=== PATIENT | female | born 1930 | race Caucasian/White ===

== ENCOUNTER 2016-04-16 15:40 | Emergency (ER) | payer MEDICARE, BC ==
--- NOTE | 2016-04-16 16:55 | RAD ---
INDICATION: Chest pain COMPARISON: Chest x-ray May 31, 2014 TECHNIQUE: PA and lateral views were obtained. FINDINGS: Bones/Soft Tissues: There are no acute bony findings. There is sternotomy Cardiomediastinal: The cardiomediastinal silhouette is mildly enlarged, unchanged. Lungs: There are no infiltrates. Pleura: There are no pleural effusions. Other: None IMPRESSION: POSTSURGICAL CARDIOMEGALY. NO ACTIVE DISEASE.
[2016-04-16 16:59] LABS: Hematocrit 42 % (35-47); Hemoglobin 13.7 g/dl (12.0-16.0); Mean Corpuscular HGB Conc 33 g/dl (31-36); Mean Corpuscular Hemoglobin 30 pg (27-31); Mean Corpuscular Volume 89 fL (80-97); Mean Platelet Volume 7 um3 (7.4-10.4); Red Blood Count 4.65 10^6/ul (4.0-5.4); Red Cell Distribution Width 16 % (10.5-15); White Blood Count 8.1 10^3/ul (3.5-10.8)
[2016-04-16 17:11] LABS: Calcium 9.6 mg/dL (8.6-10.3); EGFR Non-African American 55.2 (>60); Globulin 3.2 g/dL (2-4); Potassium 3.8 mmol/L (3.5-5.0); Total Bilirubin 0.5 mg/dL (0.2-1.0); Total Protein 7.2 g/dL (6.4-8.9)
[2016-04-16 17:12] LABS: Troponin I 0.01 ng/mL (<0.04)
[2016-04-16 20:13] VITALS: BP 104/62
--- NOTE | 2016-04-17 00:27 | ED ---
Trenton Faith Karl, scribed for Alexis Morrison MD on 04/16/16 at 1630 . HPI Chest Pain - HPI Summary HPI Summary: Arleth Hammond presented with her as historian since she has severe dementia. They had been out at [facility] and she began to clutch her chest and looked distressed when they reentered the house. This lasted several minutes and he called the EMS.. She had no C/O when EMS arrived and when she arrived in the ED. - History of Current Complaint Chief Complaint: EDChestPainROMI Time Seen by Provider: 04/16/16 16:21 Hx Obtained From: Patient, Family/It Solutions Architect - Onset/Duration: Started Minutes Ago, Atraumatic, Still Present Time of Onset: 16:00 Timing: Constant Initial Severity: Mild Current Severity: Mild Pain Intensity: 0 - CP Pain Scale Used: 0-10 Numeric Associated Signs and Symptoms: Positive: Chest Pain. Negative: Shortness of Breath - Allergy/Home Medications Allergies/Adverse Reactions: Allergies Allergy/AdvReac Type Severity Reaction Status Date / Time Adhesive Tape Allergy Severe PEELS SKIN Verified 12/22/14 12:09 OFF WITH TAPE OR BANDAID Latex Allergy Intermediate Rash Verified 12/22/14 12:09 Bupropion [From Wellbutrin] Allergy Unknown Unknown Verified 12/22/14 12:09 Reaction Details Hyoscyamine [From Levsin] Allergy Unknown Unknown Verified 12/22/14 12:09 Reaction Details Penicillins Allergy Unknown Unknown Verified 12/22/14 12:09 Reaction Details Sertraline [From Zoloft] Allergy Unknown Unknown Verified 12/22/14 12:09 Reaction Details Home Medications: Home Medications Biotin 5,000 mcg PO DAILY 04/16/16 [History Confirmed 04/16/16] Calcium Carbonate-Vitamin D W/ [Calcium 1200] 1 chw PO DAILY 04/16/16 [History Confirmed 04/16/16] Coenzyme Q10 (Ubidecarenone) [Co Q-10] 400 mg PO DAILY 04/16/16 [History Confirmed 04/16/16] Furosemide TAB* [Lasix TAB*] 40 mg PO QAM 04/16/16 [History Confirmed 04/16/16] Gabapentin CAP(*) [Neurontin 100 mg CAP(*)] 100 mg PO TID 04/16/16 [History Confirmed 04/16/16] Potassium Chloride Microencaps [Klor-Con M10] 10 meq PO DAILY 04/16/16 [History Confirmed 04/16/16] Rivaroxaban TAB(*) [Xarelto 10 mg (*)] 20 mg PO DAILY 04/16/16 [History Confirmed 04/16/16] Temazepam CAP* [Restoril CAP*] 7.5 mg PO BEDTIME 04/16/16 [History Confirmed ] PMH/Surg Hx/FS Hx/Imm Hx Endocrine/Hematology History: Reports: Hx Anticoagulant Therapy - Coumadin Denies: Hx Diabetes, Hx Thyroid Disease Cardiovascular History: Reports: Hx Congestive Heart Failure - 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, Hx Valvular Heart Disease, Other Cardiovascular Problems/Disorders - MITRAL VALVE REPAIR WITH SEVERAL ABLATIONS Denies: Hx Hypertension Respiratory History: Denies: Hx Asthma, Hx Chronic Obstructive Pulmonary Disease (COPD) GI History: Reports: Other GI Disorders - DIVERTICULITIS Denies: Hx Ulcer Musculoskeletal History: Reports: Hx Arthritis - KNEES Sensory History: Reports: Hx Cataracts, Hx Contacts or Glasses - GLASSES Denies: Hx Hearing Aid Opthamlomology History: Reports: Hx Cataracts, Hx Contacts or Glasses - GLASSES Neurological History: Denies: Other Neuro Impairments/Disorders Psychiatric History: Reports: Hx Anxiety, Hx Depression - Surgical History Surgery Procedure, Year, and Place: 2003 mitral valve repair. cardiac ablation for afib [place]. [facility]AL [facility]. [facility]. right wrist orif 2013 [facility] Hx Anesthesia Reactions: No - Immunization History Date of Influenza Vaccine: 2011 Infectious Disease History: Unable to Obtain/Confirm Infectious Disease History: Denies: Hx Hepatitis, Hx Human Immunodeficiency Virus (HIV), Traveled Outside the US in Last 30 Days - Family History Known Family History: Positive: Cardiac Disease - father - [place] late 70's - Social History Alcohol Use: Daily Alcohol Amount: 1 glass of wine with dinner Substance Use Type: Reports: None Smoking Status (MU): Never Smoked Tobacco Review of Systems Constitutional: Negative Eyes: Negative ENT: Negative Positive: Chest Pain Negative: Shortness Of Breath Gastrointestinal: Negative Genitourinary: Negative Musculoskeletal: Negative Skin: Negative Neurological: Negative Psychological: Normal All Other Systems Reviewed And Are Negative: Yes Physical Exam Triage Information Reviewed: Yes Vital Signs On Initial Exam: Initial Vitals Temp Pulse Resp BP Pulse Ox 98.4 F 113 16 119/67 100 04/16/16 15:41 04/16/16 15:41 04/16/16 15:41 04/16/16 15:41 04/16/16 15:41 Vital Signs Reviewed: Yes Appearance: Positive: Well-Appearing, No Pain Distress Skin: Positive: Warm, Skin Color Reflects Adequate Perfusion, Dry Head/Face: Positive: Normal Head/Face Inspection Eyes: Positive: Normal ENT: Positive: Normal ENT inspection Neck: Positive: Supple, Nontender Respiratory/Lung Sounds: Positive: Clear to Auscultation, Breath Sounds Present Cardiovascular: Positive: IRR Abdomen Description: Positive: Nontender, Soft Bowel Sounds: Positive: Present Musculoskeletal: Positive: Edema Left, Edema Right Neurological: Positive: Normal Psychiatric: Positive: Normal, Affect/Mood Appropriate - Edel Coma Scale Coma Scale Total: 15 Diagnostics - Vital Signs Vital Signs Temp Pulse Resp BP Pulse Ox 04/16/16 16:08 94 17 106/54 96 04/16/16 16:00 82 18 97 04/16/16 15:57 90 16 98 04/16/16 15:55 112/70 04/16/16 15:41 98.4 F 113 16 119/67 100 - Laboratory Lab Results: Lab Results 04/16/16 04/16/16 04/16/16 Range/Units 15:50 15:50 15:50 WBC 8.1 (3.5-10.8) 10^3/ul RBC 4.65 (4.0-5.4) 10^6/ul Hgb 13.7 (12.0-16.0) g/dl Hct 42 (35-47) % MCV 89 (80-97) fL MCH 30 (27-31) pg MCHC 33 (31-36) g/dl RDW 16 H (10.5-15) % Plt Count 262 (150-450) 10^3/ul MPV 7 L (7.4-10.4) um3 Neut % (Auto) 64.0 (38-83) % Lymph % (Auto) 22.3 L (25-47) % [place] % (Auto) 9.6 H (1-9) % Eos % (Auto) 3.5 (0-6) % Baso % (Auto) 0.6 (0-2) % Absolute Neuts (auto) 5.2 (1.5-7.7) 10^3/ul Absolute Lymphs (auto) 1.8 (1.0-4.8) 10^3/ul Absolute Monos (auto) 0.8 (0-0.8) 10^3/ul Absolute Eos (auto) 0.3 (0-0.6) 10^3/ul Absolute Basos (auto) 0 (0-0.2) 10^3/ul Absolute Nucleated RBC 0.01 10^3/ul Nucleated RBC % 0.1 INR (Anticoag Therapy) (0.89-1.11) D-Dimer, Quantitative (Less Than 230) ng/mL Sodium 140 (133-145) mmol/L Potassium 3.8 (3.5-5.0) mmol/L Chloride 98 L (101-111) mmol/L Carbon Dioxide 35 H (22-32) mmol/L Anion Gap 7 (2-11) mmol/L BUN 23 (6-24) mg/dL Creatinine 0.96 H (0.51-0.95) mg/dL Est GFR ( Amer) 71.0 (>60) Est GFR (Non-Af Amer) 55.2 (>60) BUN/Creatinine Ratio 24.0 H (8-20) Glucose 134 H (70-100) mg/dL Lactic Acid 1.4 (0.5-2.0) mmol/L Calcium 9.6 (8.6-10.3) mg/dL Total Bilirubin 0.50 (0.2-1.0) mg/dL AST 23 (13-39) U/L ALT 20 (7-52) U/L Alkaline Phosphatase 71 (34-104) U/L Troponin I 0.01 (<0.04) ng/mL B-Natriuretic Peptide ( - 100) pg/mL Total Protein 7.2 (6.4-8.9) g/dL Albumin 4.0 (3.2-5.2) g/dL Globulin 3.2 (2-4) g/dL Albumin/Globulin Ratio 1.3 (1-3) Digoxin 1.0 (0.8-2.0) ng/ml 04/16/16 04/16/16 04/16/16 Range/Units 15:50 15:50 19:52 WBC (3.5-10.8) 10^3/ul RBC (4.0-5.4) 10^6/ul Hgb (12.0-16.0) g/dl Hct (35-47) % MCV (80-97) fL MCH (27-31) pg MCHC (31-36) g/dl RDW (10.5-15) % Plt Count (150-450) 10^3/ul MPV (7.4-10.4) um3 Neut % (Auto) (38-83) % Lymph % (Auto) (25-47) % [place] % (Auto) (1-9) % Eos % (Auto) (0-6) % Baso % (Auto) (0-2) % Absolute Neuts (auto) (1.5-7.7) 10^3/ul Absolute Lymphs (auto) (1.0-4.8) 10^3/ul Absolute Monos (auto) (0-0.8) 10^3/ul Absolute Eos (auto) (0-0.6) 10^3/ul Absolute Basos (auto) (0-0.2) 10^3/ul Absolute Nucleated RBC 10^3/ul Nucleated RBC % INR (Anticoag Therapy) 1.97 H (0.89-1.11) D-Dimer, Quantitative < 200 (Less Than 230) ng/mL Sodium (133-145) mmol/L Potassium (3.5-5.0) mmol/L Chloride (101-111) mmol/L Carbon Dioxide (22-32) mmol/L Anion Gap (2-11) mmol/L BUN (6-24) mg/dL Creatinine (0.51-0.95) mg/dL Est GFR ( Amer) (>60) Est GFR (Non-Af Amer) (>60) BUN/Creatinine Ratio (8-20) Glucose (70-100) mg/dL Lactic Acid (0.5-2.0) mmol/L Calcium (8.6-10.3) mg/dL Total Bilirubin (0.2-1.0) mg/dL AST (13-39) U/L ALT (7-52) U/L Alkaline Phosphatase (34-104) U/L Troponin I 0.01 (<0.04) ng/mL B-Natriuretic Peptide 43 ( - 100) pg/mL Total Protein (6.4-8.9) g/dL Albumin (3.2-5.2) g/dL Globulin (2-4) g/dL Albumin/Globulin Ratio (1-3) Digoxin (0.8-2.0) ng/ml Result Diagrams: 04/16/16 15:50 04/16/16 15:50 Lab Statement: Any lab studies that have been ordered have been reviewed, and results considered in the medical decision making process. - Radiology CXR Xray Interpretation: No Acute Changes Radiology Interpretation Completed By: Radiologist - IMPRESSION: POSTSURGICAL CARDIOMEGALY. NO ACTIVE DISEASE. - EKG 15:55 EKG Interpretation: A-fib at a controlled rate of 94 bpm, No STEMI Chest Pain Course/Dx - Course Course Of Treatment: She remained stable here in the ED with an EDACS score of 18 secondary to her age. She was W/U with 2 troponins and never had any C/O here. - Diagnoses Provider Diagnoses: Chest pain Discharge - Discharge Plan Condition: Stable Disposition: HOME Patient Education Materials: Chest Pain (ED) Referrals: Christian Manrique MD [Primary Care Provider] - Additional Instructions: Please follow up with your primary care provider. Return to the emergency department for changing or worsening symptoms. The documentation as recorded by the [place] fung Karl accurately reflects the service I personally performed and the decisions made by , Alexis Morrison MD.
== END 2016-04-16 20:30 | disposition home or self-care (01) ==
LOC: ED 15:40
DX: R07.9 Chest pain, unspecified (principal); Z79.01 Long term (current) use of anticoagulants; F03.90 Unspecified dementia, unspecified severity, without behavioral disturbance, psychotic disturbance, mood disturbance, and anxiety
CPT/HCPCS: 36415; 71020; 80053; 80162; 83605; 83880; 84484; 85025; 85379; 85610; 93005; 99283

== ENCOUNTER 2016-11-26 21:54 | Emergency (ER) | payer MEDICARE, BC ==
[2016-11-27 00:20] LABS: Hematocrit 41 % (35-47); Hemoglobin 13.6 g/dl (12.0-16.0); Mean Corpuscular HGB Conc 34 g/dl (31-36); Mean Corpuscular Hemoglobin 30 pg (27-31); Mean Corpuscular Volume 91 fL (80-97); Mean Platelet Volume 8 um3 (7.4-10.4); Red Cell Distribution Width 15 % (10.5-15); White Blood Count 15.6 10^3/ul (3.5-10.8)
[2016-11-27 00:35] LABS: Albumin 4.5 g/dL (3.2-5.2); BUN/Creatinine Ratio 34.9 (8-20); Calcium 10.7 mg/dL (8.6-10.3); EGFR African American 80.5 (>60); EGFR Non-African American 62.6 (>60); Globulin 3.5 g/dL (2-4); Total Bilirubin 0.7 mg/dL (0.2-1.0)
[2016-11-27 00:36] LABS: Troponin I 0.02 ng/mL (<0.04)
[2016-11-27] MEDS ORDERED: NS 0.9% 1000 ML* 1,000 ML IV ONE (01:26)
[2016-11-27] MEDS ORDERED: Iohexol 300* (CONTRAST) 10 ML SDV IV ONE (03:12)
[2016-11-27 04:30] LABS: Urine Bilirubin Negative (Negative); Urine Glucose Negative (Negative); Urine Nitrite Negative (Negative)
[2016-11-27] MEDS ORDERED: Mineral Oil ENEMA* 1 BOTTLE PR ONE (04:43)
[2016-11-27] MEDS ORDERED: Magnesium CITRATE* 300 ML BTL PO ONE (05:17)
--- NOTE | 2016-11-27 05:50 | ED ---
Jaycob Faith Rebecca, scribed for Everton Beard on 11/27/16 at 0128 . Abdominal Pain/Female - HPI Summary HPI Summary: Pt is an 86 y/o F who presents to ED c/o RUQ abdominal pain. Pain began a few weeks ago and is described as "right under the rib" per pt's . Pain is currently not present, ranked 0/10. Additionally c/o constipation which has been unchanged by 3 suppositories and milk magnesia. Denies N/V/D. PMHx Alzheimer's so all Hx obtained from pt's . - History of Current Complaint Chief Complaint: EDAbdPain Stated Complaint: ABD PAIN Time Seen by Provider: 11/27/16 01:11 Hx Obtained From: Family/Rip/Mould Operator - Hx From Patient Unobtainable Due To: Other - Alzheimer's Onset/Duration: Lasting Weeks, Resolved Severity Currently: None Pain Intensity: 0 Pain Scale Used: 0-10 Numeric Location: Discrete At: RUQ Associated Signs and Symptoms: Positive: Other: - Constipation. Negative: Nausea, Vomiting, Diarrhea Allergies/Adverse Reactions: Allergies Allergy/AdvReac Type Severity Reaction Status Date / Time Adhesive Tape Allergy Severe PEELS SKIN Verified 11/26/16 22:19 OFF WITH TAPE OR BANDAID Latex Allergy Intermediate Rash Verified 11/26/16 22:19 Bupropion [From Wellbutrin] Allergy Unknown Unknown Verified 11/26/16 22:19 Reaction Details Hyoscyamine [From Levsin] Allergy Unknown Unknown Verified 11/26/16 22:19 Reaction Details Penicillins Allergy Unknown Unknown Verified 11/26/16 22:19 Reaction Details Sertraline [From Zoloft] Allergy Unknown Unknown Verified 11/26/16 22:19 Reaction Details PMH/Surg Hx/FS Hx/Imm Hx Endocrine/Hematology History: Reports: Hx Anticoagulant Therapy - Coumadin Denies: Hx Diabetes, Hx Thyroid Disease Cardiovascular History: Reports: Hx Congestive Heart Failure - 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, Hx Valvular Heart Disease, Other Cardiovascular Problems/Disorders - MITRAL VALVE REPAIR WITH SEVERAL ABLATIONS Denies: Hx Hypertension Respiratory History: Denies: Hx Asthma, Hx Chronic Obstructive Pulmonary Disease (COPD) GI History: Reports: Other GI Disorders - DIVERTICULITIS Denies: Hx Ulcer Musculoskeletal History: Reports: Hx Arthritis - KNEES Sensory History: Reports: Hx Cataracts, Hx Contacts or Glasses - GLASSES Denies: Hx Hearing Aid Opthamlomology History: Reports: Hx Cataracts, Hx Contacts or Glasses - GLASSES Neurological History: Reports: Other Neuro Impairments/Disorders - Alzheimer's Psychiatric History: Reports: Hx Anxiety, Hx Depression - Surgical History Surgery Procedure, Year, and Place: 2003 mitral valve repair. cardiac ablation for afib [place]. [facility]. [facility]. right wrist orif 2013 [facility] Hx Anesthesia Reactions: No - Immunization History Date of Influenza Vaccine: 2011 Infectious Disease History: No Infectious Disease History: Denies: Hx Hepatitis, Hx Human Immunodeficiency Virus (HIV), Traveled Outside the US in Last 30 Days - Family History Known Family History: Positive: Cardiac Disease - father - [place] late 70's - Social History Alcohol Use: Daily Alcohol Amount: 1 glass of wine with dinner Substance Use Type: Reports: None Smoking Status (MU): Never Smoked Tobacco Review of Systems Negative: Fever Positive: Abdominal Pain - RUQ, Other - Constipation. Negative: Vomiting, Diarrhea, Nausea All Other Systems Reviewed And Are Negative: Yes Physical Exam - Summary Physical Exam Summary: Appearance: Well appearing, no pain distress Skin: warm, dry, reflects adequate perfusion Head/face: normal Eyes: EOMI, GEETA ENT: normal Neck: supple, nontender Respiratory: CTA, breath sounds present Cardiovascular: RRR, pulses symmetrical Abdomen: tenderness in the RUQ, soft Bowel: present Musculoskeletal: normal, strength/ROM intact Neuro: sensory motor intact, alert and confused Triage Information Reviewed: Yes Vital Signs On Initial Exam: Initial Vitals Temp Pulse Resp BP Pulse Ox 97.3 F 115 16 136/63 100 11/26/16 22:21 11/26/16 22:21 11/26/16 22:21 11/26/16 22:21 11/26/16 22:21 Vital Signs Reviewed: Yes Diagnostics - Vital Signs Vital Signs Temp Pulse Resp BP Pulse Ox 11/26/16 22:21 97.3 F 115 16 136/63 100 - Laboratory Lab Results: Lab Results 11/27/16 11/27/16 11/27/16 Range/Units 00:04 00:04 00:04 WBC 15.6 H (3.5-10.8) 10^3/ul RBC 4.50 (4.0-5.4) 10^6/ul Hgb 13.6 (12.0-16.0) g/dl Hct 41 (35-47) % MCV 91 (80-97) fL MCH 30 (27-31) pg MCHC 34 (31-36) g/dl RDW 15 (10.5-15) % Plt Count 316 (150-450) 10^3/ul MPV 8 (7.4-10.4) um3 Neut % (Auto) 85.1 H (38-83) % Lymph % (Auto) 9.2 L (25-47) % [place] % (Auto) 5.5 (1-9) % Eos % (Auto) 0 (0-6) % Baso % (Auto) 0.2 (0-2) % Absolute Neuts (auto) 13.3 H (1.5-7.7) 10^3/ul Absolute Lymphs (auto) 1.4 (1.0-4.8) 10^3/ul Absolute Monos (auto) 0.9 H (0-0.8) 10^3/ul Absolute Eos (auto) 0 (0-0.6) 10^3/ul Absolute Basos (auto) 0 (0-0.2) 10^3/ul Absolute Nucleated RBC 0.01 10^3/ul Nucleated RBC % 0 INR (Anticoag Therapy) (0.89-1.11) APTT (26.0-36.3) seconds Sodium 137 (133-145) mmol/L Potassium 4.0 (3.5-5.0) mmol/L Chloride 97 L (101-111) mmol/L Carbon Dioxide 32 (22-32) mmol/L Anion Gap 8 (2-11) mmol/L BUN 30 H (6-24) mg/dL Creatinine 0.86 (0.51-0.95) mg/dL Est GFR ( Amer) 80.5 (>60) Est GFR (Non-Af Amer) 62.6 (>60) BUN/Creatinine Ratio 34.9 H (8-20) Glucose 125 H (70-100) mg/dL Lactic Acid 1.4 (0.5-2.0) mmol/L Calcium 10.7 H (8.6-10.3) mg/dL Total Bilirubin 0.70 (0.2-1.0) mg/dL AST 25 (13-39) U/L ALT 22 (7-52) U/L Alkaline Phosphatase 87 (34-104) U/L Troponin I 0.02 (<0.04) ng/mL Total Protein 8.0 (6.4-8.9) g/dL Albumin 4.5 (3.2-5.2) g/dL Globulin 3.5 (2-4) g/dL Albumin/Globulin Ratio 1.3 (1-3) Lipase 16 (11.0-82.0) U/L 11/27/16 Range/Units 00:04 WBC (3.5-10.8) 10^3/ul RBC (4.0-5.4) 10^6/ul Hgb (12.0-16.0) g/dl Hct (35-47) % MCV (80-97) fL MCH (27-31) pg MCHC (31-36) g/dl RDW (10.5-15) % Plt Count (150-450) 10^3/ul MPV (7.4-10.4) um3 Neut % (Auto) (38-83) % Lymph % (Auto) (25-47) % [place] % (Auto) (1-9) % Eos % (Auto) (0-6) % Baso % (Auto) (0-2) % Absolute Neuts (auto) (1.5-7.7) 10^3/ul Absolute Lymphs (auto) (1.0-4.8) 10^3/ul Absolute Monos (auto) (0-0.8) 10^3/ul Absolute Eos (auto) (0-0.6) 10^3/ul Absolute Basos (auto) (0-0.2) 10^3/ul Absolute Nucleated RBC 10^3/ul Nucleated RBC % INR (Anticoag Therapy) 1.72 H (0.89-1.11) APTT 32.3 (26.0-36.3) seconds Sodium (133-145) mmol/L Potassium (3.5-5.0) mmol/L Chloride (101-111) mmol/L Carbon Dioxide (22-32) mmol/L Anion Gap (2-11) mmol/L BUN (6-24) mg/dL Creatinine (0.51-0.95) mg/dL Est GFR ( Amer) (>60) Est GFR (Non-Af Amer) (>60) BUN/Creatinine Ratio (8-20) Glucose (70-100) mg/dL Lactic Acid (0.5-2.0) mmol/L Calcium (8.6-10.3) mg/dL Total Bilirubin (0.2-1.0) mg/dL AST (13-39) U/L ALT (7-52) U/L Alkaline Phosphatase (34-104) U/L Troponin I (<0.04) ng/mL Total Protein (6.4-8.9) g/dL Albumin (3.2-5.2) g/dL Globulin (2-4) g/dL Albumin/Globulin Ratio (1-3) Lipase (11.0-82.0) U/L Result Diagrams: 11/27/16 00:04 11/27/16 00:04 Lab Statement: Any lab studies that have been ordered have been reviewed, and results considered in the medical decision making process. - Radiology CXR Xray Interpretation: No Acute Changes Radiology Interpretation Completed By: ED Physician - CT CT Abd/Pel CT Interpretation Completed By: Radiologist - Cholesterol gallstones without evidence of gallbladder inflammation. Possible fecal impaction. Cardiomegaly. Small fibroids. Possible left breast mass can be further evaluated with ultrasound and mammography. ED physician reviewed this radiology report and agrees. - Ultrasound No standard instances Ultrasound Interpretation Completed By: Radiologist - Positive for cholelithiasis. However, there is no gallbladder wall thickening or pericholecystic fluid. Common bile duct is normal diameter at 1.8 mm. Right renal cysts are noted. No right hydronephrosis. Normal liver. No right upper quadrant free fluid. Visualized portions of the pancreas (excluding tail) show no abnormality. Please note that the scan was limited as the patient could not follow directions. ED physician reviewed this radiology report and agrees. - EKG 0404 Cardiac Rate: NL - 91 bpm EKG Rhythm: Atrial Fibrillation ST Segment: Non-Specific - NOn-specific ST changes. Abdominal Pain Fem Course/Dx - Course Course Of Treatment: Pt is an 86 y/o F who presents to ED c/o RUQ abdominal pain. Pain began a few weeks ago and is described as "right under the rib" per pt's . Pain is currently not present, ranked 0/10. Additionally c/o constipation which has been unchanged by 3 suppositories and milk magnesia. Denies N/V/D. PMHx Alzheimer's so all Hx obtained from pt's . CXR reveals no acute findings as read by ED physician. Gallbladder US reveals "Positive for cholelithiasis. However, there is no gallbladder wall thickening or pericholecystic fluid. Common bile duct is normal diameter at 1.8 mm. Right renal cysts are noted. No right hydronephrosis. Normal liver. No right upper quadrant free fluid. Visualized portions of the pancreas (excluding tail) show no abnormality. Please note that the scan was limited as the patient could not follow directions." CT Abd/Pel reveals "Cholesterol gallstones without evidence of gallbladder inflammation. Possible fecal impaction. Cardiomegaly. Small fibroids. Possible left breast mass can be further evaluated with ultrasound and mammography." Blood work and UA completed. In the ED course, pt was given fluids and a fleet mineral oil enema. Pt will be D/C to home with Dx of constipation, fecal impaction and gallstones with an Rx for DulcoLax and a follow up with surgery. She understands and agrees. Elevated BP noted and advised to f/u. - Diagnoses Provider Diagnoses: Fecal impaction, Constipation, Gallstones Discharge - Discharge Plan Condition: Stable Disposition: HOME Prescriptions: Bisacodyl EC TAB* [Dulcolax EC TAB*] 10 mg PO DAILY PRN #[id number] tab.ec MDD 1 PRN Reason: Constipation Patient Education Materials: Fecal Impaction (ED), Constipation (ED), Gallstones (ED) Referrals: Ancelmo Ramos MD [Medical Doctor] - 3 Days The documentation as recorded by the Jayc[facility] fung Rebecca accurately reflects the service I personally performed and the decisions made by , Everton Beard.
[2016-11-27 06:37] VITALS: BP 110/72
--- NOTE | 2016-11-27 07:58 | RAD ---
HISTORY: Cholecystitis, abdominal pain COMPARISONS: None TECHNIQUE: Multiple transverse and longitudinal ultrasound images were obtained of the right upper quadrant of the abdomen using grayscale and color Doppler imaging. FINDINGS: The study is limited by patient bowel gas and patient physical limitations. LIVER: The liver is normal in shape, size, contour, and echogenicity. There are no focal parenchymal masses. There is normal hepatopedal flow of the portal vein on Doppler imaging. BILIARY TREE: There is no intrahepatic or extrahepatic biliary dilatation. The common duct measures 0.2 cm. GALLBLADDER: The gallbladder is distended. Multiple shadowing echogenic foci consistent with gallstones are noted. There is no gallbladder wall thickening, pericholecystic fluid, or sonographic Fair sign. PANCREAS: The head of the pancreas is unremarkable. The tail of the pancreas is not well visualized secondary to overlying bowel gas. RIGHT KIDNEY: There are simple cysts of the lower pole of the right kidney. There is no hydronephrosis or nephrolithiasis. The right kidney measures 10.7 x 6 x 4.8 cm. AORTA AND IVC: The aorta and IVC are unremarkable. FLUID: There are no pleural effusions. There is no free fluid within the hepatorenal recess. OTHER FINDINGS: None. IMPRESSION: CHOLELITHIASIS WITHOUT SONOGRAPHIC FEATURES OF ACUTE CHOLECYSTITIS
--- NOTE | 2016-11-27 08:02 | RAD ---
INDICATION: Abdominal pain COMPARISON: Chest x-ray dated April 16, 2016 TECHNIQUE: PA and lateral views of the chest were obtained. FINDINGS: Stable postoperative findings include sternotomy wires. The heart and mediastinum are normal in size and contour. The lungs are grossly clear. There is no evidence of large pleural effusion. Visualized bones are normal for the patient's age. There is no radiographic evidence of free air beneath the diaphragm IMPRESSION: No radiographic evidence of acute cardiopulmonary disease.
--- NOTE | 2016-11-27 08:38 | RAD ---
INDICATION: Abdominal pain cholecystitis. COMPARISON: Comparison is made with a prior right upper quadrant ultrasound from November 26, 2016. TECHNIQUE: A CT scan of the abdomen and pelvis was performed with intravenous and oral contrast following intravenous injection of 63 ml of Omnipaque 300 nonionic contrast. Contiguous axial sections were obtained from the lung bases through the symphysis pubis. Images were reconstructed in the coronal and sagittal planes. FINDINGS: There is mild dependent bilateral lower lobe subsegmental atelectasis. No pleural effusion is present. The heart appears moderately enlarged. There is a focal area of increased density within the anterior left breast measuring 3 cm in diameter possibly representing dense glandular tissue versus a mass. The liver and spleen are normal in size. No significant focal hepatic abnormality is seen. There are subcapsular coarse calcifications within the spleen possibly related to prior trauma. No significant focal hepatic normality is seen. Note is made of gallstones. No gallbladder wall thickening is appreciated. The pancreas appears to be within normal limits. The kidneys and adrenal glands are normal in size. No hydronephrosis is seen. There are a couple right renal cysts measuring up to 2.8 cm in diameter. The aorta is normal in caliber with moderate calcific plaque present. No significant enlarged retroperitoneal lymph nodes are seen. The stomach, small and large bowel appear nondistended. The appendix is not visualized. No inflammatory changes are seen in the right lower quadrant. There is moderate to severe descending and sigmoid diverticulosis without evidence for diverticulitis or colitis. There is a large amount of stool within the rectosigmoid colon suggesting the possibility of fecal impaction. The uterus is anteverted and mildly prominent with multiple coarse calcifications consistent with multiple calcified fibroids. No free intraperitoneal air or fluid is seen. No significant focal osseous abnormality is seen. IMPRESSION: 1. CHOLELITHIASIS WITHOUT EVIDENCE FOR ACUTE CHOLECYSTITIS. 2. POSSIBLE FECAL IMPACTION. 3. POSSIBLE LEFT BREAST MASS VERSUS DENSE GLANDULAR TISSUE WHICH CAN BE FURTHER EVALUATED WITH MAMMOGRAMS AND ULTRASOUND OF THE LEFT BREAST. 3. MULTIPLE CALCIFIED UTERINE FIBROIDS.
== END 2016-11-27 05:30 | disposition home or self-care (01) ==
LOC: ED 21:54
DX: K56.41 Fecal impaction (principal); K80.80 Other cholelithiasis without obstruction
CPT/HCPCS: 36415; 71020; 74177; 76705; 80053; 81003; 83605; 83690; 84484; 85025; 85610; 85730; 93005; 99283; A9270-GY; Q9967